=== PATIENT | male | born 1990 | race African-American/Black ===

== ENCOUNTER 2023-01-22 12:11 | Emergency (ER) | payer MEDICAID ==
[~2023-01-22] VITALS: Ht 182.9 cm; Wt 97.0 kg
[2023-01-22 12:16] VITALS: TEMP 97.9; O2SAT 100
[2023-01-22] MEDS ORDERED: IBUPROFEN 600MG TABLET PO SCH (12:30)
[2023-01-22] MEDS ORDERED: IBUP-2029 PO (13:20)
[2023-01-22 13:38] VITALS: BP 123/90; PULSE 74; RESP 20
== END 2023-01-22 13:41 | disposition home or self-care (01) ==
LOC: ER 12:11
DX: S60.222A Contusion of left hand, initial encounter (principal); X58.XXXA Exposure to other specified factors, initial encounter; Y93.89 Activity, other specified; Y92.89 Other specified places as the place of occurrence of the external cause; Y99.8 Other external cause status
CPT/HCPCS: 73130; 99283

== ENCOUNTER 2023-08-10 06:41 | Emergency (ER) | payer MEDICAID ==
[~2023-08-10] VITALS: Ht 182.9 cm; Wt 98.0 kg
[~2023-08-10 06:41] MED LIST: IBUP-2029 PO
[2023-08-10 06:46] VITALS: O2SAT 98
[2023-08-10] MEDS ORDERED: MORPHINE SULFATE 4 MG/ML CPJ (NOT FOR IM USE) IV STA (07:08)
[2023-08-10] MEDS ORDERED: IBUPROFEN 400MG TABLET PO ONE (07:30)
[2023-08-10] MEDS ORDERED: OXYCODONE HCL/ACETAMINOPHEN 5/325MG TABLET PO ONE (07:30)
[2023-08-10 08:46] LABS: BASOPHILS % 0.6 % (0.0-2.0); DIFFERENTIAL COMMENT 0; EOSINOPHILS % 2.6 % (0.0-5.0); HEMATOCRIT. 48.4 % (42.0-52.0); HEMOGLOBIN. 15.4 g/dL (14.0-18.0); LYMPHOCYTES % 21.5 % (20.0-50.0); MEAN CORPUSCULAR HEMOGLOBIN 22.5 pg (28.0-32.0); MEAN CORPUSCULAR HGB CONC 31.9 g/dL (31.0-37.0); MEAN CORPUSCULAR VOLUME 70.4 fL (80.0-94.0); MEAN PLATELET VOLUME 8.6 fl (7.4-10.4); MONOCYTES % 10.3 % (2.0-8.0); PLATELET 159 x1000/uL (130-400); RED BLOOD CELL COUNT 6.87 mill/uL (4.7-6.1); RED CELL DISTRIBUTION WIDTH 15.1 % (11.6-14.6); WHITE BLOOD COUNT 9.3 x1000/uL (4.5-11.0)
[2023-08-10 08:56] LABS: ALANINE AMINOTRANSFERASE 31 IU/L (10-49); ALBUMIN 4.3 g/dL (3.2-4.8); ASPARTATE AMINOTRANSFERASE 31 IU/L (<34); BILIRUBIN TOTAL 0.6 mg/dL (0.1-1.0); CALCIUM 9.1 mg/dL (8.7-10.4); CARBON DIOXIDE 27 mEq/L (21-32); CHLORIDE 105 mEq/L (98-107); CREATININE 1.5 mg/dL (0.6-1.3); GLUCOSE 99 mg/dL (70-105); POTASSIUM 4.4 mEq/L (3.5-5.1); PROTEIN TOTAL 7.7 g/dL (6.0-8.3); SODIUM 140 mEq/L (136-145); UREA NITROGEN BLOOD 10 mg/dL (9-23)
[2023-08-10 09:23] LABS: TROPONIN I HIGH SENSITIVITY < 4 ng/L (3.0-53)
[2023-08-10] MEDS ORDERED: OXYC-100 PO (09:38)
[2023-08-10] MEDS ORDERED: IBUP-2028 PO (09:38)
[2023-08-10 10:29] VITALS: BP 114/89; PULSE 84; RESP 18; TEMP 98.1
== END 2023-08-10 10:30 | disposition home or self-care (01) ==
LOC: ER 06:58
DX: R07.89 Other chest pain (principal); J45.909 Unspecified asthma, uncomplicated; Z91.018 Allergy to other foods
CPT/HCPCS: 36415; 71045; 80053; 83880; 84484; 85025; 93005; 99285